=== PATIENT | male | born 1965 | race Asian ===

== ENCOUNTER 2022-02-24 10:15 | Emergency (ER) | payer SELFPAY ==
[2022-02-24] MEDS ORDERED: HEPARIN NA (PORCINE) 5,000 UNITS/ML 1ML VIAL ONE (10:20)
[2022-02-24] MEDS ORDERED: HEPARIN INFUSION - 25,000 UNITS/500 ML INFUS.BAG IVPB ONE (10:20)
[2022-02-24] MEDS ORDERED: ASPIRIN 81 MG CHEWABLE TABLETS ONE (10:20)
[2022-02-24 10:22] VITALS: BMI 28.2
[2022-02-24] MEDS ORDERED: morphine CARPU-JECT 4 MG/1 ML DISP.SYRIN IVPUSH ONE (10:23)
[2022-02-24] MEDS ORDERED: morphine SULFATE 4 MG/ML VIAL ONE (10:23)
[2022-02-24] MEDS ORDERED: HEPARIN NA (PORCINE) 5,000 UNITS/ML 1ML VIAL IVPUSH PRN ×2 (10:32)
[2022-02-24] MEDS ORDERED: SODIUM CHLORIDE 0.9% 500 ML INFUS.BAG IV ONE (10:34)
[2022-02-24] MEDS ORDERED: ASPIRIN 81 MG CHEWABLE TABLETS PO ONE (10:35)
[2022-02-24] MEDS ORDERED: TICAGRELOR 60 MG TABLET PO ONE (10:42)
[2022-02-24] MEDS ORDERED: TICAGRELOR 90 MG TABLET PO ONE (10:44)
[2022-02-24] MEDS ORDERED: HEPARIN - 25,000 UNIT in SODIUM CHLORIDE 495 ML IV SCH (10:45)
[2022-02-24 11:04] VITALS: RESP 24
[2022-02-24 11:16] LABS: INR 1.04 (0.83-1.09)
[2022-02-24 11:17] VITALS: TEMP 97.7
[2022-02-24 11:17] LABS: HEMATOCRIT 42.5 % (35.4-49); HEMOGLOBIN 14.4 G/dL (11.7-16.9); MCH 21.7 pg (25.7-33.7); MCHC 33.9 g/dl (32.0-35.9); MEAN PLT VOLUME 8.3 fl (7.5-11.1); PLATELET COUNT 288.1 10^3/uL (134-434); RBC 6.64 10^6/uL (4.00-5.60); RDW 20.1 % (11.9-15.9); WHITE BLOOD COUNT 10.2 10^3/uL (4.0-10.8)
[2022-02-24 11:19] LABS: ACTIVATED PTT 28.5 SECONDS (25.2-36.5)
[2022-02-24 11:24] LABS: ALBUMIN 4.1 g/dl (3.4-5.0); CALCIUM 9.2 mg/dl (8.5-10); CREATININE 1.3 mg/dl (0.55-1.3); PLATELET ESTIMATE ADEQUATE; TOT PROT 7.2 g/dl (6.4-8.2)
[2022-02-24 11:31] VITALS: BP 156/101; PULSE 76
[2022-02-25] MEDS ORDERED: ASPIRIN COATED 81 MG TABLET.EC PO ONE (10:00)
[2022-02-25] MEDS ORDERED: ASPIRIN 81 MG CHEWABLE TABLETS PO ONE (10:31)
== END 2022-02-24 11:00 | disposition short-term general hospital (02) ==
LOC: FER 10:15
PROC: 3E033GC Introduction of Other Therapeutic Substance into Peripheral Vein, Percutaneous Approach (ICD-10-PCS; principal; 2022-02-24)
DX: I21.3 ST elevation (STEMI) myocardial infarction of unspecified site (principal)
CPT/HCPCS: 36415; 80053; 84484; 85027; 85610; 85730; 93005; 99291; C9803-CS; J1644; U0003; U0005